=== PATIENT | male | born 1955 | race American Indian/Alaskan Native ===

== ENCOUNTER 2017-07-15 23:00 | Emergency (ER) | payer OTHER ==
[2017-07-15] MEDS ORDERED: BOOSTRIX IM ONE (23:45)
[2017-07-15] MEDS ORDERED: NACL 0.9% IR ONE (23:45)
[2017-07-15] MEDS ORDERED: XYLOCAINE 1% 20 mL INFILTRATI ONE (23:45)
[2017-07-16 00:15] LABS: Amphetamine Screen,Urine PRESUMPTIVE NEGATIVE; Benzodiazepines Screen,Urine PRESUMPTIVE NEGATIVE; Cannabinoid Screen,Urine PRESUMPTIVE NEGATIVE; Cocaine Screen,Urine PRESUMPTIVE NEGATIVE; Methadone Screen,Urine PRESUMPTIVE NEGATIVE; Opiate Screen,Urine PRESUMPTIVE NEGATIVE
--- NOTE | 2017-07-16 00:46 | Cat Scan Report ---
FINAL REPORT PROCEDURE: CT HEAD/BRAIN WO CON TECHNIQUE: Computerized tomography of the head was performed without contrast material. HISTORY: fall COMPARISON: No prior studies are available for comparison. FINDINGS: Skull and scalp: There is soft tissue swelling over the left frontal region of the skull and the left orbit. No skull fracture.. Paranasal sinuses: Mild opacification of the frontal, ethmoid and maxillary sinuses. Ventricles and subarachnoid spaces: Normal. Cerebrum: No evidence of hemorrhage, acute infarction or mass . Cerebellum and brainstem: No evidence of hemorrhage, acute infarction or mass. Vasculature: Normal. Comments: None. IMPRESSION: There is no evidence of an acute intracranial process. There is soft tissue swelling over the left frontal region of the skull and the left orbital region. There is mild opacification of the frontal, ethmoid and maxillary sinuses.
--- NOTE | 2017-07-16 00:47 | Cat Scan Report ---
FINAL REPORT PROCEDURE: CT CERVICAL SPINE WO CON TECHNIQUE: Computerized tomography of the cervical spine was performed from the skull base to T1 without contrast material. HISTORY: fall COMPARISON: No prior studies are available for comparison. FINDINGS: The alignment of the vertebral segments is normal. The heights of the vertebral bodies are maintained. There is loss of disc space height at the C 2 3, C3-4 and C4-5 levels. Moderate spur formation off the vertebral bodies and the facets is identified at all levels. No acute fracture or dislocation of the cervical spine. The spinal canal is adequate at all levels. IMPRESSION: There is no evidence of an acute fracture or dislocation of the cervical spine. Moderate cervical spondylosis and degenerative disc changes as described..
--- NOTE | 2017-07-16 00:49 | Cat Scan Report ---
FINAL REPORT PROCEDURE: CT FACIAL BONES WO CON TECHNIQUE: Computerized tomography of the facial bones and soft tissues with axial and coronal sections performed from the cranial aspect of the frontal sinuses to the caudal portion of the mandible without contrast material. HISTORY: fall COMPARISON: No prior studies are available for comparison. FINDINGS: Bones: There is a slightly impacted nasal bone fracture. The remaining osseous structures are intact.. Paranasal sinuses: There is mild opacification of the frontal, ethmoid and maxillary sinuses. Soft tissues: Moderate soft tissue swelling over the left orbit and over the left frontal region of the skull.. Other: The optic globes, optic nerves and extraocular muscles are normal.. IMPRESSION: Slightly impacted nasal bone fracture. Moderate soft tissue swelling over the left orbit and left frontal region of the skull. Mild opacification of the frontal, ethmoid and maxillary sinuses.
--- NOTE | 2017-07-16 01:47 | Emergency Department Report ---
ED General Adult HPI - General Chief complaint: Wound/Laceration Stated complaint: ETOH/HEAD LAC Time Seen by Provider: 07/15/17 23:41 Source: patient, EMS Mode of arrival: Stretcher Limitations: No Limitations - History of Present Illness Initial comments: Patient is a 62-year-old [place] male who is presenting with close head injury. Patient was [place] in [place] and tripped on a railroad track and hit his head. Patient is on arrival is loud and belligerent and screaming that he was scheduled to the [place] and doesn't want to be here. Patient also states he needs to go to [place] because that's where he lives. Patient states he has a headache was unable to give any additional history. Patient does have alcohol history Associated Symptoms: confusion, headaches. denies: chest pain, cough, diaphoresis, fever/chills, loss of appetite, malaise, nausea/vomiting, rash, seizure, shortness of breath, weakness - Related Data Previous Rx's Medication Instructions Recorded Last Taken Type Ibuprofen [Motrin] 600 mg PO Q8H PRN #20 tablet 07/16/17 Unknown Rx Allergies Allergy/AdvReac Type Severity Reaction Status Date / Time No Known Allergies Allergy Verified 07/15/17 23:47 ED Review of Systems ROS: Stated complaint: ETOH/HEAD LAC Other details as noted in HPI Comment: Unobtainable due to pts medical conditions ED Past Medical Hx - Past Medical History Previous Medical History?: Yes Hx Hypertension: Yes - Surgical History Past Surgical History?: Yes Additional Surgical History: hernia repair - Social History Smoking Status: Current Every Day Smoker Substance Use Type: None - Medications Home Medications: Home Medications Medication Instructions Recorded Confirmed Last Taken Type Ibuprofen [Motrin] 600 mg PO Q8H PRN #20 tablet 07/16/17 Unknown Rx ED Physical Exam - General Limitations: No Limitations General appearance: alert, in no apparent distress, appears intoxicated - Head Head exam: Present: normocephalic. Absent: atraumatic (patient has extensive swelling to the left upper eyelid with a 3 cm laceration along the eyebrow) - Eye Eye exam: Present: normal appearance - ENT ENT exam: Present: mucous membranes moist - Neck Neck exam: Present: normal inspection - Respiratory Respiratory exam: Present: normal lung sounds bilaterally. Absent: respiratory distress, wheezes, rales, rhonchi - Cardiovascular Cardiovascular Exam: Present: regular rate, normal rhythm. Absent: systolic murmur, diastolic murmur, rubs, gallop - GI/Abdominal GI/Abdominal exam: Present: soft, normal bowel sounds - Rectal Rectal exam: Present: deferred - Extremities Exam Extremities exam: Present: normal inspection - Back Exam Back exam: Present: normal inspection - Neurological Exam Neurological exam: Present: alert, oriented X3 - Psychiatric Psychiatric exam: Present: normal affect, normal mood - Skin Skin exam: Present: warm, dry, intact, normal color. Absent: rash ED Course Vital Signs 07/15/17 07/16/17 07/16/17 23:30 01:30 05:30 Temperature 98 F Pulse Rate 86 88 90 Respiratory 20 18 18 Rate Blood Pressure 136/88 134/88 142/88 [Left] O2 Sat by Pulse 99 100 100 Oximetry 07/16/17 07/16/17 07:00 07:03 Temperature 98.1 F Pulse Rate 80 Respiratory 18 18 Rate Blood Pressure 136/84 [Left] O2 Sat by Pulse 100 100 Oximetry - Laceration /Wound Repair Left Upper Anterior Face Wound Location: head (brief summary laceration along the left eyebrow) Wound Length (cm): 3 Wound's Depth, Shape: irregular (L shaped) Wound Explored: clean Irrigated w/ Saline (ccs): 300 Betadine Prep?: Yes Anesthesia: 1% Lidocaine Wound Repaired With: sutures Suture Size/Type: 5:0 Number of Sutures: 7 (on the smaller segment of the L-shaped laceration 1 suture was placed on the longest segment of the L-shaped laceration there was a running stitch with 6 stitches) Layer Closure?: No Sterile Dressing Applied?: Yes ED Medical Decision Making - Radiology Data Radiology results: report reviewed CT of the head shows no intracranial process is acute there is some soft tissue swelling at the left upper eyelid and forehead. CT of the C-spine shows degenerative changes but no acute proce CT of the facial bones shows a slightly depressed nasal bone fracture. Ss - Medical Decision Making Patient's sutures were placed. The patient does have a significantly elevated alcohol level is 0.38. Patient be held here for clinical sobriety will be discharged home. Critical care attestation.: If time is entered above; I have spent that time in minutes in the direct care of this critically ill patient, excluding procedure time. ED Disposition Clinical Impression: Alcohol intoxication Qualifiers: Complication of substance-induced condition: uncomplicated Qualified Code(s): F10.920 - Alcohol use, unspecified with intoxication, uncomplicated Closed head injury Qualifiers: Encounter type: initial encounter Qualified Code(s): S09.90XA - Unspecified injury of head, initial encounter Nasal bone fracture Qualifiers: Encounter type: initial encounter Fracture type: closed Qualified Code(s): S02.2XXA - Fracture of nasal bones, initial encounter for closed fracture Facial laceration Qualifiers: Encounter type: initial encounter Qualified Code(s): S01.81XA - Laceration without foreign body of other part of head, initial encounter Disposition: TO HOME OR SELFCARE Is pt being admited?: No Does the pt Need Aspirin: No Condition: Stable Instructions: Laceration (ED), Minor Head Injury (ED), Alcohol Intoxication (ED ) Prescriptions: Ibuprofen [Motrin] 600 mg PO Q8H PRN #20 tablet PRN Reason: Pain Referrals: PRIMARY CARE,MD [Primary Care Provider] - 3-5 Days
[2017-07-16 20:09] VITALS: BP 136/84
== END 2017-07-16 08:00 | disposition home or self-care (01) ==
LOC: ED 23:00
DX: S01.112A Laceration without foreign body of left eyelid and periocular area, initial encounter (principal); I10 Essential (primary) hypertension; F17.200 Nicotine dependence, unspecified, uncomplicated; F10.920 Alcohol use, unspecified with intoxication, uncomplicated; W26.8XXA Contact with other sharp object(s), not elsewhere classified, initial encounter; Y93.89 Activity, other specified; Y92.89 Other specified places as the place of occurrence of the external cause; Y99.8 Other external cause status
CPT/HCPCS: 12013; 36415; 70450; 70486; 72125; 80307; 90471; 90715; 99284; G0480; 80320

== ENCOUNTER 2019-10-08 15:30 | Emergency (ER) | payer MEDICARE ==
--- NOTE | 2019-10-08 17:53 | Emergency Department Report ---
Blank Doc - Documentation Documentation: 64-year-old male that presents with abdominal pain w/ n/v. This initial assessment/diagnostic orders/clinical plan/treatment(s) is/are subject to change based on patient's health status, clinical progression and re- assessment by fellow clinical providers in the ED. Further treatment and workup at subsequent clinical providers discretion. Patient/guardians urged not to elope from the ED as their condition may be serious if not clinically assessed and managed. Initial orders include: 1- Patient sent to [facility] for further evaluation and treatment 2- labs 3- UA 4- XR abd/cxr
--- NOTE | 2019-10-08 18:34 | XRay Report ---
ABDOMEN 3 VIEW(S) INDICATION / CLINICAL INFORMATION: n/v abd pain. COMPARISON: None available. FINDINGS: TUBES / LINES: None. BOWEL GAS PATTERN: No significant abnormality. FREE AIR / EXTRALUMINAL GAS: None seen. ADDITIONAL FINDINGS: No significant additional findings. IMPRESSION: 1. No significant abnormality. Signer Name: Yash Young MD Signed: 10/08/2019 6:30 PM Workstation Name: [id number]
[2019-10-08 18:35] LABS: Basophils % (Auto) 0.7 % (0.0-1.8); Hematocrit 41.8 % (35.5-45.6); Hemoglobin 14.1 gm/dl (11.8-15.2); Lymphocytes # (Auto) 0.5 K/mm3 (1.2-5.4); Lymphocytes % (Auto) 14.5 % (13.4-35.0); Mean Corpuscular HGB Conc 34 % (32-34); Mean Corpuscular Volume 94 fl (84-94); Monocytes # (Auto) 0.2 K/mm3 (0.0-0.8); Monocytes % (Auto) 5.5 % (0.0-7.3); Red Blood Count 4.42 M/mm3 (3.65-5.03); Red Cell Distribution Width 14.1 % (13.2-15.2)
[2019-10-08 18:55] LABS: Platelet Count 74 K/mm3 (140-440)
[2019-10-08 19:03] LABS: Alanine Aminotransferase 70 units/L (7-56); Albumin 4.9 g/dL (3.9-5); BUN/Creatinine Ratio 16; Blood Urea Nitrogen 13 mg/dL (9-20); Calcium 9.8 mg/dL (8.4-10.2); Hemolysis Index 9
[2019-10-09] MEDS ORDERED: diphenhydrAMINE 50 MG/ML VIAL IV STA (00:58)
[2019-10-09] MEDS ORDERED: SODIUM CHLORIDE 0.9% 1000 ML 1,000 ML IV ONE (00:58)
[2019-10-09] MEDS ORDERED: METOCLOPRAMIDE 10 MG/2 ML INJ IV STA (00:58)
[2019-10-09] MEDS ORDERED: ONDANSETRON 4 MG/2 ML INJ IV STA (00:58)
[2019-10-09] MEDS ORDERED: LORazepam 2 MG/ML VIAL IV ONE (01:03)
--- NOTE | 2019-10-09 01:06 | Emergency Department Report ---
ED N/V/D HPI - General Chief complaint: Nausea/Vomiting/Diarrhea Stated complaint: N/V Time Seen by Provider: 10/08/19 17:52 Source: patient Mode of arrival: Ambulatory Limitations: No Limitations - History of Present Illness Initial comments: 64-year-old -[place] male reported alcoholic presents emergency department complaining of 2-day history painless nausea and vomiting. States his last drink was on yesterday has been having some various episodes of vomiting since that time reports no hemoptysis no hematemesis no hematochezia no chest pain, no palpitations, no fever, no chills, no sweats. Radiation: none Severity: mild Consistency: constant Improves with: other (Drinking) Worsens with: other (Stop strength) Context: alcohol abuse Associated Symptoms: nausea/vomiting. denies: diaphoresis, shortness of breath, syncope, weakness - Related Data Previous Rx's Medication Instructions Recorded Last Taken Type Ibuprofen [Motrin] 600 mg PO Q8H PRN #20 tablet 07/16/17 Unknown Rx Allergies Allergy/AdvReac Type Severity Reaction Status Date / Time No Known Allergies Allergy Verified 07/15/17 23:47 ED Review of Systems ROS: Stated complaint: N/V Other details as noted in HPI Comment: All other systems reviewed and negative ED Past Medical Hx - Past Medical History Previous Medical History?: Yes Hx Hypertension: Yes - Surgical History Past Surgical History?: Yes Additional Surgical History: hernia repair - Social History Smoking Status: Current Every Day Smoker Substance Use Type: Alcohol - Medications Home Medications: Home Medications Medication Instructions Recorded Confirmed Last Taken Type Ibuprofen [Motrin] 600 mg PO Q8H PRN #20 tablet 07/16/17 Unknown Rx ED Physical Exam - General Limitations: No Limitations General appearance: alert, in no apparent distress - Head Head exam: Present: atraumatic, normocephalic - Eye Eye exam: Present: normal appearance, PERRL, EOMI Pupils: Present: normal accommodation - ENT ENT exam: Present: normal exam, normal orophraynx, mucous membranes moist - Neck Neck exam: Present: normal inspection - Respiratory Respiratory exam: Present: normal lung sounds bilaterally. Absent: respiratory distress, wheezes, rales, rhonchi, chest wall tenderness, accessory muscle use, decreased breath sounds - Cardiovascular Cardiovascular Exam: Present: regular rate, normal rhythm. Absent: systolic murmur, diastolic murmur, rubs, gallop - GI/Abdominal GI/Abdominal exam: Present: soft, normal bowel sounds - Rectal Rectal exam: Present: deferred - Extremities Exam Extremities exam: Present: normal inspection - Back Exam Back exam: Present: normal inspection - Neurological Exam Neurological exam: Present: alert, oriented X3 - Psychiatric Psychiatric exam: Present: normal affect, normal mood - Skin Skin exam: Present: warm, dry, intact, normal color. Absent: rash ED Course Vital Signs 10/08/19 15:35 Temperature 98 F Pulse Rate 76 Respiratory 18 Rate Blood Pressure 182/102 [Right] O2 Sat by Pulse 96 Oximetry ED Medical Decision Making - Lab Data Result diagrams: 10/08/19 17:43 10/08/19 17:43 Critical care attestation.: If time is entered above; I have spent that time in minutes in the direct care of this critically ill patient, excluding procedure time. ED Disposition Condition: Stable Referrals: ROBERT BASSETT MD [Primary Care Provider] - 3-5 Days
[2019-10-09 06:18] VITALS: BP 163/78
== END 2019-10-09 05:50 | disposition home or self-care (01) ==
LOC: ED 15:30
DX: R11.2 Nausea with vomiting, unspecified (principal); I10 Essential (primary) hypertension; F17.200 Nicotine dependence, unspecified, uncomplicated; Z98.890 Other specified postprocedural states
CPT/HCPCS: 36415; 74022; 80053; 83690; 85025; 96361; 96374; 96375; 99284; J1200; J2060; J2405; J2765; J7030